=== PATIENT | male | born 1990 | race Caucasian/White ===

== ENCOUNTER 2017-09-26 19:32 | Emergency (ER) ==
[2017-09-26 19:38] VITALS: BP 137/88; TEMP 98.2; BMI 32.3
--- NOTE | 2017-09-26 19:50 | ED.PDOC ---
General ED Provider: Dr. EUSEBIO ANDREWS Chief Complaint: Toe Pain/Injury Stated Complaint: Pain and swelling left great toe. Denies any injury. Thinks its an in grown toenail. Time Seen by Physician: 19:43 Mode of Arrival: Walk-In Information Source: Patient Exam Limitations: No limitations Nursing and Triage Documentation Reviewed and Agree: No Reviewed sepsis parameters & appropriate labs ordered?: No System Inflammatory Response Syndrome: Not Applicable Sepsis Protocol: For patient's 13 years and over: Temp is 96.8 and below OR 101 and greater Pulse >90 BPM Resp >20/minute Acutely Altered Mental Status Are patient's symptoms suggestive of a new infection, such as: -Pneumonia -Skin, Soft Tissue -Endocarditis -UTI -Bone, Joint Infection -Implantable Device -Acute Abdominal Infection -Wound Infection -Meningitis -Blood Stream Catheter Infection -Unknown System Inflammatory Response Syndrome: Not Applicable Musculoskeletal Complaint Exam - Ankle/Foot Complaint/Exam Location of Injury: Reports: Left, Toe #1 Mechanism of Injury: Reports: No known trauma Onset/Duration: 2 Symptoms Are: Reports: Still present Onset of Pain: Reports: Days (2) Initial Severity: Mild Current Severity: Moderate Location: Reports: Discrete (Medial aspect of the left great toe. ) Character: Reports: Aching, Throbbing Alleviating: Reports: None Aggravating: Reports: Movement, Weight bearing, Prolonged standing Able to Bear Weight: Yes Associated Signs and Symptoms: Reports: Swelling, Redness Related History: Denies: Similar episode, Occupational injury Gout Risk Factors: Reports: None Related Surgical History: Reports: None Lower Extremity Findings: Present: Swelling, Erythema Achilles Tendon Abnormality: No Tenderness: Present: Midfoot (Radiated pain ), Digits. Absent: Medial malleolus , Lateral malleolus, Heel, Achilles insertion Ankle/Foot Picture: 1 - Medial as pect of the toe tenderness and swelling. Differential Diagnosis: Cellulitis, Infection Review of Systems - Review Of Systems Constitutional: Reports: No symptoms Eyes: Reports: No symptoms Ears, Nose, Mouth, Throat: Reports: No symptoms Respiratory: Reports: No symptoms Cardiac: Reports: No symptoms GI: Reports: No symptoms : Reports: No symptoms Musculoskeletal: Reports: Joint pain, Joint swelling Skin: Reports: No symptoms Neurological: Reports: No symptoms Endocrine: Reports: No symptoms Hematologic/Lymphatic: Reports: No symptoms All Other Systems: Reviewed and Negative Past Medical History - Past Medical History Previously Healthy: Yes Endocrine: Reports: None Cardiovascular: Reports: None Respiratory: Reports: None Hematological: Reports: None Gastrointestinal: Reports: None Genitourinary: Reports: None Neuro/Psych: Reports: None Musculoskeletal: Reports: None Cancer: Reports: None - Surgical History General Surgical History: Reports: None - Family History Family History: Reports: None - Social History Smoking Status: Never smoker Hx Substance Use: No Alcohol Screening: None - Immunizations Tetanus Shot up to Date: Yes Physical Exam - Physical Exam Appearance: Well-appearing, No pain distress, Well-nourished ENT: Oropharynx normal Neck: Supple Respiratory: Airway patent, Breath sounds clear, Breath sounds equal, Respirations nonlabored Cardiovascular: RRR, Pulses normal, No rub, No murmur GI/: Soft, Nontender, No masses, Bowel sounds normal, No Organomegaly Musculoskeletal: Normal strength, ROM intact, No edema, No calf tenderness Skin: Warm, Dry Neurological: Sensation intact, Motor intact, Reflexes intact, Cranial nerves intact, Alert, Oriented Psychiatric: Affect appropriate, Mood appropriate Critical Care Note - Critical Care Note Total Time (mins): 0 Course - Course Vital Signs: Temp Pulse Resp BP Pulse Ox 09/26/17 19:34 98.2 F 73 16 137/88 97 Departure - Departure Time of Disposition: 19:53 Disposition: HOME SELF-CARE Discharge Problem: Toe infection Instructions: [facility] (ED) Condition: Stable Pt referred to PMD for follow-up: Yes Additional Instructions: Take antibiotics as prescribed Take motrin as needed for pain. Follow up with PCP in 7 days Return to the ER if worse. Prescriptions: Cephalexin [Keflex] 500 mg PO Q8HR #30 capsule Ibuprofen [Motrin] 600 mg PO Q6H PRN #30 tablet PRN Reason: Analgesia Allergies/Adverse Reactions: Allergies No Known Allergies Allergy (Verified 09/26/17 19:40) Home Medications: Ambulatory Orders 1 [No Reported Medications] 0 mg PO DAILY 04/07/13 Cephalexin [Keflex] 500 mg PO Q8HR #30 capsule 09/26/17 Ibuprofen [Motrin] 600 mg PO Q6H PRN #30 tablet 09/26/17 Disposition Discussed With: Patient
== END 2017-09-26 20:05 | disposition home or self-care (01) ==
LOC: ED 19:32
DX: L03.032 Cellulitis of left toe (principal)
CPT/HCPCS: 99282